=== PATIENT | female | born 1970 | race Caucasian/White ===

== ENCOUNTER 2017-11-11 11:52 | Outpatient (CLI) | payer BC ==
--- NOTE | 2017-11-11 14:14 | RAD ---
PA CHEST X-RAY WITH TWO VIEWS LEFT SIDED RIBS 11/11/17 HISTORY: Palpable abnormality and protrusion left lower chest. This has been present but has enlarged over the past month. FINDINGS: The cardiac silhouette and pulmonary vasculature are within normal limits. Calcified granuloma overli es the left lung apex with calcifications overlying the left upper quadrant likely related to calcifi ed granulomata within the spleen. Left lung is otherwise clear. No left sided rib fracture is seen. N o osseous excrescence is visualized. There is metallic density overlying the midline of the abdomen likely related to overlying external j ewelry. Clinical correlation is suggested. IMPRESSION: 1. No acute cardiopulmonary process. 2. No left sided rib abnormality is visualized. No osseous excrescence is seen. Given history of palpable abnormality, CT scan of thorax may be helpful if warranted. 1. POS: [facility]
== END 2017-11-11 11:53 | disposition home or self-care (01) ==
LOC: SCSRAD 11:52
PROVIDERS: ATTEND Family Medicine
DX: R07.81 Pleurodynia (principal)

== ENCOUNTER 2017-11-28 13:07 | Outpatient (CLI) | payer BC ==
--- NOTE | 2017-11-28 15:58 | CT ---
NONCONTRAST CT THORAX 11/28/17 HISTORY: Left sided rib pain for six months involving the lower ribs. The left lower ribs appear more prominen t than on the right according to the patient which this was become worse. COMPARISON: None available. FINDINGS: There is a pectus excavatum deformity present greater involving the lower chest. Lack of intravenous contrast limits evaluation of vascular structures and mediastinum. There is a small pericardial effusion present. No enlarged lymph nodes are seen on this nonenhanced CT scan examination. There are calcified mediast inal and left hilar lymph nodes related to prior granulomatous disease. There is minimal symmetric biapical pleural and parenchymal scarring with calcified granuloma in the left lung apex. Lungs are otherwise clear and no noncalcified pulmonary nodule, mass, or pleural effu reji is identified. Upper abdomen demonstrates a normal nonenhanced CT appearance with calcified granuloma in the spleen. There is no evidence of a fracture. No rib deformity is seen and there is no mass in the subcutaneous soft tissues at the lower left chest to correspond to patient's palpable abnormality. Deformity of t he patient's description of deformity and asymmetry of the left chest compared to the right could be related to the pectus excavatum deformity. IMPRESSION: 1. Pectus excavatum deformity. 2. There is no mass or cystic lesion or rib deformity to correspond to patient's palpable abnorm ality lower left chest. 3. Small pericardial effusion. POS: [facility]
== END 2017-11-28 13:08 | disposition home or self-care (01) ==
LOC: BICCT 13:07
PROVIDERS: ATTEND Family Medicine
DX: R07.81 Pleurodynia (principal); I31.3 Pericardial effusion (noninflammatory); M95.4 Acquired deformity of chest and rib
CPT/HCPCS: 71250

== ENCOUNTER 2019-01-08 10:27 | Outpatient (CLI) | payer OTHER ==
--- NOTE | 2019-01-08 11:58 | RAD ---
XR Abdomen 1 View/KUB CLINICAL INDICATION: Pain FINDINGS: No free air. Mild retained fecal material is seen within colon. No acute osseous pathology. Metallic ornamentation overlies the midline lower abdomen. Radiopaque density is seen at the left hem ipelvis. IMPRESSION: No acute process.
== END 2019-01-08 10:28 | disposition home or self-care (01) ==
LOC: SCSRAD 10:27
PROVIDERS: ATTEND Nurse Practitioner Family
DX: R10.12 Left upper quadrant pain (principal)
CPT/HCPCS: 74018

== ENCOUNTER 2021-07-13 09:39 | Outpatient (CLI) | payer BC | END 2021-07-13 09:40 | disposition home or self-care (01) | LOC: BICMAMMO 09:39 | PROVIDERS: ATTEND Family Medicine | DX: Z12.31 Encounter for screening mammogram for malignant neoplasm of breast (principal) | CPT/HCPCS: 77063; 77067 ==